=== PATIENT | male | born 1955 | race Caucasian/White ===

== ENCOUNTER 2022-01-16 08:35 | Outpatient (CLI) | payer MEDICARE, OTHER | END 2022-01-16 23:59 | disposition home or self-care (01) | LOC: RAD 08:35 | PROVIDERS: ATTEND Nurse Practitioner Family | DX: R94.01 Abnormal electroencephalogram [EEG] (principal); G40.009 Localization-related (focal) (partial) idiopathic epilepsy and epileptic syndromes with seizures of localized onset, not intractable, without status epilepticus; N18.6 End stage renal disease; Z99.2 Dependence on renal dialysis | CPT/HCPCS: 95819 ==

== ENCOUNTER 2022-09-06 07:57 | Day surgery (SDC) | payer MEDICARE, BC ==
[~2022-09-06] VITALS: Ht 185.4 cm; Wt 93.0 kg
[2022-09-06 08:22] VITALS: BP 146/72
[2022-09-06] MEDS ORDERED: normal saline 1000ml 1,000 ML IV PRN (08:25)
[2022-09-06] MEDS ORDERED: LEVE250T PO (08:33)
[2022-09-06] MEDS ORDERED: ASPI81TA52 PO (08:33)
[2022-09-06] MEDS ORDERED: ATOR40TA72 PO (08:33)
[2022-09-06] MEDS ORDERED: AMLO10TA48 PO (08:33)
[2022-09-06] MEDS ORDERED: MIRT-88 PO (08:33)
[2022-09-06 09:48] LABS: BASOPHILS # (AUTO) 0.1 X10'3 (0-0.2); EOSINOPHILS # (AUTO) 0.3 X10'3 (0-0.9); EOSINOPHILS % (AUTO) 5.4 % (0-6); HEMATOCRIT 33.1 % (42.0-52.0); HEMOGLOBIN 11.2 g/dl (14.0-17.9); LYMPHOCYTES # (AUTO) 1.1 X10'3 (1.1-4.8); LYMPHOCYTES % (AUTO) 19.1 % (21-51); MEAN CORPUSCULAR HEMOGLOBIN 28.1 PG (27.0-31.0); MEAN CORPUSCULAR HGB CONC 33.7 g/dL (33.0-36.5); MEAN CORPUSCULAR VOLUME 83.5 FL (78-98); MEAN PLATELET VOLUME 9.9 FL (7.4-10.4); MONOCYTES # (AUTO) 0.7 X10'3 (0-0.9); MONOCYTES % (AUTO) 12.1 % (2-12); NEUTROPHILS # (AUTO) 3.6 X10'3 (1.8-7.7); NEUTROPHILS % (AUTO) 62.4 % (42-75); PLATELET COUNT 135 X10'3 (140-440); RED BLOOD COUNT 3.97 X10'6 (4.70-6.10); RED CELL DISTRIBUTION WIDTH 14.4 % (11.5-14.5); WHITE BLOOD COUNT 5.7 X10'3 (4.5-11.0)
[2022-09-06] MEDS ORDERED: midazolam 1 mg/ML 2ml injection ONE ×2 (10:07→10:48)
[2022-09-06] MEDS ORDERED: iohexol 300mg/ml 100ml inj. ONE (10:07)
[2022-09-06] MEDS ORDERED: LIDOcaine 1% 30ml preserv. free vial ONE (10:07)
[2022-09-06] MEDS ORDERED: FENTANYL CITRATE/PF 50 MCG/1 ML VIAL ONE ×4 (10:07→11:07)
[2022-09-06] MEDS ORDERED: heparin 1,000 UNITS/NS 500ml 500 ML ONE (10:07)
[2022-09-06 11:20] VITALS: BP 146/72
[2022-09-06 11:31] VITALS: BP 193/92
[2022-09-06 11:45] VITALS: BP 164/90
[2022-09-06 12:00] VITALS: BP 184/87
[2022-09-06 12:30] VITALS: BP 189/95
== END 2022-09-06 12:45 | disposition home or self-care (01) ==
LOC: SSTAY O 07:57
PROVIDERS: ATTEND Radiology Vascular & Interventional Radiology
DX: T82.858A Stenosis of other vascular prosthetic devices, implants and grafts, initial encounter (principal); Y83.8 Other surgical procedures as the cause of abnormal reaction of the patient, or of later complication, without mention of misadventure at the time of the procedure; Z88.2 Allergy status to sulfonamides; N18.6 End stage renal disease; Z86.73 Personal history of transient ischemic attack (TIA), and cerebral infarction without residual deficits; Z88.1 Allergy status to other antibiotic agents; Z88.8 Allergy status to other drugs, medicaments and biological substances
CPT/HCPCS: 36415; 36901; 85025; 85610; 99152; 99153; C1769; C1894; J1644; J2250; J3010; J7030; Q9967; A4620; A6446; J3490

== ENCOUNTER 2022-10-20 14:45 | Emergency (ER) | payer BC, MEDICARE ==
[~2022-10-20] VITALS: Ht 182.9 cm; Wt 88.6 kg
[~2022-10-20 14:45] MED LIST: AMLO10TA48 PO; ASPI81TA52 PO; ATOR40TA72 PO; LEVE250T PO; MIRT-88 PO
[2022-10-20 14:55] VITALS: BP 140/77
== END 2022-10-20 15:45 | disposition home or self-care (01) ==
LOC: ER 14:46
DX: E87.5 Hyperkalemia (principal); Z99.2 Dependence on renal dialysis; Z88.2 Allergy status to sulfonamides; Z88.6 Allergy status to analgesic agent; Z88.5 Allergy status to narcotic agent; Z79.899 Other long term (current) drug therapy
CPT/HCPCS: 36415; 84132; 99283

== ENCOUNTER 2023-03-21 11:07 | Day surgery (SDC) | payer MEDICARE, BC ==
[~2023-03-21] VITALS: Ht 182.9 cm; Wt 82.8 kg
[2023-03-21] VITALS (7 sets, daily range): BP systolic 144–167; BP diastolic 76–105
[2023-03-21] MEDS ORDERED: normal saline 1000ml 1,000 ML IV PRN (11:30)
[2023-03-21] MEDS ORDERED: GABA300C PO (12:09)
[2023-03-21] MEDS ORDERED: LOSA25TA96 PO (12:09)
[2023-03-21] MEDS ORDERED: PANT-47 PO (12:09)
[2023-03-21] MEDS ORDERED: SEVE800T8 PO (12:09)
[2023-03-21 12:40] LABS: BASOPHILS % (AUTO) 1.4 % (0-1); EOSINOPHILS # (AUTO) 0.3 X10'3 (0-0.9); EOSINOPHILS % (AUTO) 7.6 % (0-6); HEMATOCRIT 37.7 % (42.0-52.0); HEMOGLOBIN 12.6 g/dl (14.0-17.9); LYMPHOCYTES % (AUTO) 29.3 % (21-51); MEAN CORPUSCULAR HEMOGLOBIN 29.2 PG (27.0-31.0); MEAN CORPUSCULAR HGB CONC 33.3 g/dL (33.0-36.5); MEAN CORPUSCULAR VOLUME 87.6 FL (78-98); MEAN PLATELET VOLUME 9.2 FL (7.4-10.4); MONOCYTES # (AUTO) 0.5 X10'3 (0-0.9); MONOCYTES % (AUTO) 13.5 % (2-12); NEUTROPHILS # (AUTO) 1.7 X10'3 (1.8-7.7); NEUTROPHILS % (AUTO) 48.2 % (42-75); PLATELET COUNT 164 X10'3 (140-440); RED BLOOD COUNT 4.31 X10'6 (4.70-6.10); RED CELL DISTRIBUTION WIDTH 17.2 % (11.5-14.5); WHITE BLOOD COUNT 3.5 X10'3 (4.5-11.0)
[2023-03-21] MEDS ORDERED: midazolam 1 mg/ML 2ml injection ONE (12:43)
[2023-03-21] MEDS ORDERED: fentaNYL/PF 50MCG/1 ML 2ML syringe ONE (12:43)
[2023-03-21] MEDS ORDERED: heparin 1,000 UNITS/NS 500ml 500 ML ONE (12:44)
[2023-03-21] MEDS ORDERED: iohexol 300mg/ml 100ml inj. ONE (12:44)
[2023-03-21 12:57] LABS: ALBUMIN 3.8 G/DL (3.4-5.0); ANION GAP 8 (8-16); BLOOD UREA NITROGEN 11 MG/DL (7-18); BUN/CREATININE RATIO 1.7 (10.0-20.0); CALCIUM 9.9 MG/DL (8.5-10.1); CHLORIDE 99 MMOL/L (99-107); CREATININE 6.39 MG/DL (0.60-1.10); GLUCOSE 78 MG/DL (70-104); POTASSIUM 5.6 MMOL/L (3.5-5.1); SODIUM 146 MMOL/L (135-145); TOTAL CARBON DIOXIDE 38.9 MMOL/L (24-32); eGFR 9 ML/MIN
[2023-03-21] MEDS ORDERED: hydrALAZINE 20mg/ml inj. IV ONE (13:37)
== END 2023-03-21 15:35 | disposition short-term general hospital (02) ==
LOC: SSTAY O 11:07
PROVIDERS: ATTEND Radiology Vascular & Interventional Radiology
DX: T82.590A Other mechanical complication of surgically created arteriovenous fistula, initial encounter (principal); N18.6 End stage renal disease; Z88.2 Allergy status to sulfonamides; Z88.5 Allergy status to narcotic agent; Z88.1 Allergy status to other antibiotic agents; Z88.8 Allergy status to other drugs, medicaments and biological substances; Z79.899 Other long term (current) drug therapy; Z79.82 Long term (current) use of aspirin; Z86.73 Personal history of transient ischemic attack (TIA), and cerebral infarction without residual deficits; Y83.2 Surgical operation with anastomosis, bypass or graft as the cause of abnormal reaction of the patient, or of later complication, without mention of misadventure at the time of the procedure; Y92.89 Other specified places as the place of occurrence of the external cause
CPT/HCPCS: 36415; 36901; 80048; 85025; 85610; 99152; 99153; C1769; J0360; J1644; J2250; J3010; J7030; Q9967; A4620; C1894